=== PATIENT | female | born 1950 | race Caucasian/White ===

== ENCOUNTER 2017-09-14 16:12 | Inpatient (IN) | payer OTHER, MEDICAID ==
[~2017-09-14] VITALS: Ht 152.4 cm; Wt 44.1 kg
[2017-09-14] MEDS ORDERED: [UNRECOGNIZED DRUG - REMARK] PO (16:19)
[2017-09-14 16:40] LABS: BASOPHILS % (AUTO) 0.6 % (0.0-2.0); EOSINOPHILS % (AUTO) 0.8 % (1.0-6.0); HEMATOCRIT 36.8 % (36-46); LYMPHOCYTES # (AUTO) 2.1 K/uL (1.0-4.8); LYMPHOCYTES % (AUTO) 27.4 % (22.0-44.0); MEAN CORPUSCULAR HEMOGLOBIN 31.2 pg (26.0-34.0); MEAN CORPUSCULAR HGB CONC 35.3 G/dL (31.0-37.0); MEAN CORPUSCULAR VOLUME 89 fL (80-100); MONOCYTES # (AUTO) 0.6 K/uL (0.1-1.0); MONOCYTES % (AUTO) 7.5 % (2.0-9.0); NEUTROPHILS # (AUTO) 4.9 K/uL (1.8-7.7); NEUTROPHILS % (AUTO) 63.7 % (40.0-70.0); PLATELET COUNT (AUTO) 246 K/uL (150-450); RED BLOOD CELL COUNT(AUTO) 4.16 MIL/uL (4.00-5.20); RED CELL DISTRIBUTION WIDTH 13.8 % (11.5-14.5)
[2017-09-14 16:54] LABS: ANION GAP 10 mmol/L (8-16); CALCIUM, TOTAL 8.7 mg/dL (8.8-10.5); CARBON DIOXIDE 25 mmol/L (22-29); CHLORIDE 99 mmol/L (98-107); CREATININE 0.67 mg/dL (0.60-1.30); GLOMERULAR FILTR. RATE CALC > 60 mL/min (>60); GLUCOSE,RANDOM 102 mg/dL (70-110); POTASSIUM 3.4 mmol/L (3.5-5.1); SODIUM SERUM 134 mmol/L (136-145); UREA NITROGEN, BLOOD 11 mg/dL (7-18)
[2017-09-14 16:59] LABS: AMPHET/METH SCREEN,URINE NEGATIVE (NEGATIVE); BARBITURATE SCREEN, URINE NEGATIVE (NEGATIVE); BENZODIAZEPINES SCREEN,URINE NEGATIVE (NEGATIVE); CANNABINOID SCREEN,URINE NEGATIVE (NEGATIVE); COCAINE SCREEN,URINE NEGATIVE (NEGATIVE); METHADONE SCREEN, URINE NEGATIVE (NEGATIVE); OPIATE SCREEN,URINE NEGATIVE (NEGATIVE)
[2017-09-14 16:59] LABS: ALANINE AMINOTRANSFERASE 11 U/L (12-78); ALBUMIN 4.1 g/dL (3.4-5.0); ALKALINE PHOSPHATASE 89 U/L (46-116); ASPARTATE AMINOTRANSFERASE 19 U/L (15-37); TOTAL PROTEIN, SERUM 7.7 g/dL (6.4-8.2)
[2017-09-14 17:02] LABS: PHENCYCLIDINE SCREEN,URINE NEGATIVE (NEGATIVE)
[2017-09-14] MEDS ORDERED: POTASSIUM CHLORIDE 20 MEQ ER TABLET PO ONE (17:45)
[2017-09-14] MEDS ORDERED: LORazepam 2 MG TABLET PO PRN (18:00)
[2017-09-14] MEDS ORDERED: ZOLPIDEM TARTRATE 10 MG TABLET PO PRN (18:00)
[2017-09-14] MEDS ORDERED: HALOPERIDOL 5 MG TABLET PO PRN (18:00)
[2017-09-14 19:32] LABS: APPEARANCE,URINE CLOUDY (CLEAR); GLUCOSE, URINE (UA) NEGATIVE (NEGATIVE); KETONES,URINE 40 mg/dL (NEGATIVE); LEUKOCYTE ESTERASE ,URINE LARGE (NEGATIVE); NITRATE,URINE POSITIVE (NEGATIVE); OCCULT BLOOD,URINE NEGATIVE (NEGATIVE); PH,URINE 5.5 (5.0-8.0); PROTEIN,URINE TRACE (NEGATIVE)
[2017-09-14 19:35] LABS: BILIRUBIN,URINE PRELIM. POSITIVE (NEGATIVE)
[2017-09-14 19:43] LABS: BACTERIA,URINE Many /HPF (None Seen)
[2017-09-14 19:44] LABS: RBC,URINE None Seen /HPF (0-2)
[2017-09-14 19:45] LABS: CALCIUM OXALATE CRYSTALS,UR Many /LPF (None Seen)
[2017-09-14 19:46] LABS: SQUAMOUS EPITHELIAL CELL,UR Few /LPF (None Seen)
[2017-09-14] MEDS: ARIPiprazole 15 MG TABLET PO SCH (20:26)
[2017-09-14] MEDS: TraZODone HCL 50 MG TABLET PO SCH (20:26)
[2017-09-14] MEDS ORDERED: PNEUMOCOCCAL VACCINE POLYVALENT 0.5 ML VIAL [PPSV23] IM ONE (21:15)
[2017-09-14 21:52] VITALS: BP 146/54
[2017-09-15 07:52] LABS: CHOL/HDL RATIO 2.6 (3.9-5.7)
[2017-09-15 08:10] VITALS: BP 131/56
[2017-09-15] MEDS: FLUoxetine HCL 10 MG CAPSULE PO SCH (08:30)
[2017-09-15] MEDS ORDERED: ALBUTEROL SULFATE HFA 90 MCG/PUFF 8 GM INHALER IH PRN (11:15)
[2017-09-15] MEDS ORDERED: MAG HYDROX/AL HYDROX/SIMETH ES 30 ML SUSPENSION UDCUP PO PRN (11:15)
[2017-09-15] MEDS ORDERED: IBUPROFEN 400 MG TABLET PO PRN (11:15)
[2017-09-15] MEDS ORDERED: DOCUSATE SODIUM 100 MG CAPSULE PO PRN (11:15)
[2017-09-15] MEDS ORDERED: PETROLATUM,WHITE 71 GM JELLY TP PRN (11:15)
[2017-09-15] MEDS ORDERED: ONDANSETRON HCL 4 MG TABLET PO PRN (11:15)
[2017-09-15] MEDS ORDERED: ACETAMINOPHEN 325 MG TABLET PO PRN (11:15)
[2017-09-15] MEDS ORDERED: MAGNESIUM HYDROXIDE SUSPENSION 30 ML UDCUP PO PRN (11:15)
[2017-09-15 11:17] LABS: POTASSIUM 3.6 mmol/L (3.5-5.1)
[2017-09-15] MEDS: CIPROFLOXACIN HCL 500 MG TABLET PO SCH (16:30)
[2017-09-15 16:45] VITALS: BP 131/55
[2017-09-15] MEDS: TraZODone HCL 50 MG TABLET PO SCH (20:37)
[2017-09-15] MEDS: ARIPiprazole 15 MG TABLET PO SCH (20:37)
[2017-09-16 07:02] LABS: HEMOGLOBIN A1C 5.8 % (4.5-6.2)
[2017-09-16 07:35] LABS: THYROID STIMULATING HORMONE 0.46 uIU/mL (0.36-3.74)
[2017-09-16 08:03] VITALS: BP 125/58
[2017-09-16] MEDS: FLUoxetine HCL 10 MG CAPSULE PO SCH (08:29)
[2017-09-16] MEDS: CIPROFLOXACIN HCL 500 MG TABLET PO SCH ×2 (08:29→16:55)
[2017-09-16 18:33] VITALS: BP 119/55
[2017-09-16] MEDS: ARIPiprazole 15 MG TABLET PO SCH (20:48)
[2017-09-16] MEDS: TraZODone HCL 50 MG TABLET PO SCH (20:48)
[2017-09-17] MEDS: CIPROFLOXACIN HCL 500 MG TABLET PO SCH ×2 (09:43→16:27)
[2017-09-17] MEDS: FLUoxetine HCL 10 MG CAPSULE PO SCH (09:44)
[2017-09-17 10:05] VITALS: BP 138/54
[2017-09-17 19:37] VITALS: BP 125/57
[2017-09-17] MEDS: ARIPiprazole 15 MG TABLET PO SCH (20:11)
[2017-09-17] MEDS: TraZODone HCL 50 MG TABLET PO SCH (20:11)
[2017-09-18 09:10] VITALS: BP 104/56
[2017-09-18] MEDS: CIPROFLOXACIN HCL 500 MG TABLET PO SCH ×2 (09:22→18:33)
[2017-09-18] MEDS: FLUoxetine HCL 10 MG CAPSULE PO SCH (09:22)
[2017-09-18 19:42] VITALS: BP 119/56
[2017-09-18] MEDS: TraZODone HCL 50 MG TABLET PO SCH (20:29)
[2017-09-18] MEDS: ARIPiprazole 15 MG TABLET PO SCH (20:29)
[2017-09-18 20:48] LABS: GLUCOMETER DEV NAME(LOC) 3EX 1; GLUCOSE,POINT OF CARE 178 MG/DL (70-110)
[2017-09-19] MEDS: CIPROFLOXACIN HCL 500 MG TABLET PO SCH ×2 (08:07→16:03)
[2017-09-19] MEDS: FLUoxetine HCL 20 MG CAPSULE PO SCH (08:08)
[2017-09-19 08:43] VITALS: BP 132/51
[2017-09-19 17:53] VITALS: BP 121/52
[2017-09-19] MEDS: TraZODone HCL 50 MG TABLET PO SCH (21:19)
[2017-09-19] MEDS: ARIPiprazole 15 MG TABLET PO SCH (21:19)
[2017-09-20 01:45] VITALS: BP 117/64
[2017-09-20 06:59] LABS: ANION GAP 5 mmol/L (8-16); CALCIUM, TOTAL 8.3 mg/dL (8.8-10.5); CARBON DIOXIDE 30 mmol/L (22-29); CHLORIDE 107 mmol/L (98-107); CREATININE 0.61 mg/dL (0.60-1.30); GLOMERULAR FILTR. RATE CALC > 60 mL/min (>60); GLUCOSE,RANDOM 99 mg/dL (70-110); POTASSIUM 3.7 mmol/L (3.5-5.1); SODIUM SERUM 142 mmol/L (136-145); UREA NITROGEN, BLOOD 13 mg/dL (7-18)
[2017-09-20] MEDS: FLUoxetine HCL 20 MG CAPSULE PO SCH (08:19)
[2017-09-20] MEDS: CIPROFLOXACIN HCL 500 MG TABLET PO SCH (08:19)
[2017-09-20 08:30] VITALS: BP 114/59
[2017-09-20] MEDS ORDERED: CIPR-278 PO (08:37)
[2017-09-20] MEDS ORDERED: ARIP15TA2 PO (08:37)
[2017-09-20] MEDS ORDERED: FLUO-191 PO (08:38)
[2017-09-20] MEDS ORDERED: TRAZ-219 PO (08:38)
== END 2017-09-20 12:08 | disposition home or self-care (01) | DRG 885 ==
LOC: EMS 16:14 → 3EX 18:45
PROVIDERS: ADMIT Psychiatry & Neurology Psychiatry; ATTEND Psychiatry & Neurology Psychiatry
DX: F25.1 Schizoaffective disorder, depressive type (principal); E87.1 Hypo-osmolality and hyponatremia; N39.0 Urinary tract infection, site not specified; R45.851 Suicidal ideations; E87.6 Hypokalemia; F41.9 Anxiety disorder, unspecified; G20 Parkinson's disease; G47.00 Insomnia, unspecified; F32.9 Major depressive disorder, single episode, unspecified; M25.519 Pain in unspecified shoulder; R03.0 Elevated blood-pressure reading, without diagnosis of hypertension; Z91.19 Patient's noncompliance with other medical treatment and regimen; Z28.21 Immunization not carried out because of patient refusal; Z79.899 Other long term (current) drug therapy
CPT/HCPCS: 83036; 84132; 84443; 87086; 99285; G0480